=== PATIENT | female | born 1945 | race African-American/Black ===

== ENCOUNTER 2019-08-19 05:39 | Day surgery (SDC) | payer MEDICARE, MEDICAID ==
[2019-08-17 07:27] LABS: BASOPHILS % (AUTO) 2.2 % (0.0-2.0); EOSINOPHILS % (AUTO) 5.1 % (0.0-3.0); HEMATOCRIT 40.1 % (37.0-47.0); LYMPHOCYTES % (AUTO) 26.6 % (20.0-45.0); MEAN CORPUSCULAR VOLUME 86 FL (80-99); MONOCYTES % (AUTO) 9.8 % (1.0-10.0); NEUTROPHILS % (AUTO) 56.2 % (45.0-75.0); PLATELET COUNT 258 K/UL (150-450); RED BLOOD COUNT 4.67 M/UL (4.20-5.40); RED CELL DISTRIBUTION WIDTH 12.1 % (11.6-14.8); WHITE BLOOD COUNT 7.5 K/UL (4.8-10.8)
[2019-08-17 07:32] LABS: INR 0.9 (0.9-1.1)
[2019-08-17 07:47] LABS: ANION GAP 9 mmol/L (5-15); BLOOD UREA NITROGEN 13 mg/dL (7-18); CALCIUM 9.1 MG/DL (8.5-10.1); CARBON DIOXIDE 30 MMOL/L (21-32); CHLORIDE 104 MMOL/L (98-107); POTASSIUM 3.7 MMOL/L (3.5-5.1); SODIUM 143 MMOL/L (136-145)
--- NOTE | 2019-08-17 12:03 | Opthalmology H&P ---
Ophthalmology H&P H&P Chief Complaint: decreased vision in left eye HPI Vision Affects Ability to: read, manage personal affairs Past Ocular History: retinal problems - Hypertension Retinopathy OU HPI Narrative Blurry Vision Exam Visual Acuity: OD 20/125 OS 20/200 Tension: OD 12 OS 12 Eye Exam: normal OU: external exam, palpebral fissure-width, marginal reflex distance, levator function, corneas, anterior chambers; findings: lens - NS OU, fundus exam - HTN Retinopathy OU Assessment/Plan Treatment Plan: cataract extraction w/ lens implant - left eye Goals of Treatment: improvement of vision, enhance quality of life Attestation Attestation The risks and benefits of the surgery as well as alternative procedures were explained to the patient in detail. Umer Madrigal MD Aug 17, 2019 12:03
--- NOTE | 2019-08-17 12:04 | Pre-Procedure Note/Attestation ---
Pre-Procedure Note/Attestation Complete Prior to Procedure Planned Procedure: left Procedure Narrative: Cataract Extraction With Intraocular Lens Implant Left Eye Indications for Procedure Pre-Operative Diagnosis: Nuclear sclerotic cataract left eye Attestation I attest that I discussed the nature of the procedure; its benefits; risks and complications; and alternatives (and the risks and benefits of such alternatives ), prior to the procedure, with the patient (or the patient's legal customer service representative teacher). I attest that, if there was a reasonable possibility of needing a blood transfusion, the patient (or the patient's legal customer service representative teacher) was given the [facility] standardized written summary, pursuant to the Jose Graingers Blood Safety Act ([place] Health and Safety Code # 1645, as amended). I attest that I re-evaluated the patient just prior to the surgery and that there has been no change in the patient's H&P, except as documented below: Umer Madrigal MD Aug 17, 2019 12:04
--- NOTE | 2019-08-17 16:15 | Pre-op HX & Phy Repo 2 SIG ---
DATE OF ADMISSION: 08/19/2019 PRESURGICAL INTERNAL MEDICINE HISTORY AND PHYSICAL DATE OF EVALUATION: 08/17/2019. REASON FOR EVALUATION: I was asked by Dr. Umer Madrigal to see this 74-year-old female who is going for elective surgery on the left eye. The patient has a sclerotic nuclear cataract of left eye. Please see full History and Physical by Dr. Umer Madrigal. Surgery is scheduled for August 19, 2019 at the [facility]. The patient was seen in the presurgical department at [facility]. The patient is a 74-year-old female complaining of progressive vision loss due to cataract. PAST MEDICAL HISTORY AND REVIEW OF SYSTEMS: Remarkable for history of hypertension, degenerative joint disease of knee, and history of bronchial asthma. Denies history of stroke. No chest pain, palpitation, or heart attack. Denies history of bronchial asthma or COPD. No history of diabetes mellitus. No history of GI bleeding. No hepatitis. No history of renal failure. History of degenerative joint disease of knee. PAST SURGICAL HISTORY: Cholecystectomy. FAMILY HISTORY: Mother from heart attack. Father, unknown. ALLERGIES: Allergic to penicillin and codeine . MEDICATIONS: Present medications include simvastatin 20 mg, hydrochlorothiazide, 25 mg, Ventolin inhaler, amlodipine 10 mg, and Motrin as needed. HABITS: The patient smoked for about 20 years and stopped five years ago. Alcohol for 10 years, stopped [address]. PHYSICAL EXAMINATION: GENERAL: Alert, well-developed and well-nourished, overweight female in her 70s, in no acute distress. VITAL SIGNS: Blood pressure 150/83, temperature 97.6, pulse 74, and respirations 18. O2 saturation 97% on room air. SKIN: Clear, warm, dry. LYMPHATICS: Lymph nodes not enlarged. HEENT: Head is normocephalic and atraumatic. Ears, clear. No discharge. Eyes, full description per Dr. Umer Madrigal. Mouth, clear and moist. No teeth. No dentures. NECK: Supple. No jugular venous distention. Carotids artery +2. Trachea midline. CHEST: No deformity or asymmetry. LUNGS: Clear to auscultation and percussion. No rales or rhonchi. HEART: Sinus bradycardia 54 per minute. No murmur. No S3 or S4. ABDOMEN: Soft, obese. No rebound. Liver and spleen not enlarged. EXTREMITIES: Degenerative joint disease, knee, more on the right. No edema. No varicose vein. GENITOURINARY: Denies dysuria. No CVA tenderness. NEUROLOGIC: No tremor. No nystagmus. LABORATORY AND DIAGNOSTIC DATA: ECG - sinus bradycardia [address] abnormality suggestive of left ventricular hypertrophy. Laboratory work pending. IMPRESSION: 1. Nuclear sclerotic cataract, left eye. 2. Hypertension, controlled. 3. Bronchial asthma, controlled. 4. Obesity. 5. Degenerative joint disease, knee. PLAN: Cataract extraction of left eye with intraocular lens implant per Dr. Umer Madrigal. CONCLUSION: The patient is a 74-year-old female with multiple medical problems including hypertension, degenerative joint disease, and obesity. EKG, sinus bradycardia 55 and asymptomatic and evidence of left ventricular hypertrophy. The patient should be NPO after midnight , August 19, 2019. The patient's condition is optimized for surgery. Thank you very much, Dr. Madrigal, for privilege to participate in presurgical care of this interesting patient. Cara James M.D. DR: YELENA JOB#: [id number] CC:
[~2019-08-19] VITALS: Ht 179.1 cm; Wt 108.9 kg
[2019-08-19] VITALS (9 sets, daily range): BP systolic 123–153; BP diastolic 64–87
[~2019-08-19 05:39] MED LIST: AMLODIPINE BESY10 MG ORAL; HYDROCHLOROTHIA25 MG ORAL; VENTOLIN HFA18 GM INH
[2019-08-19] MEDS ORDERED: CHOLESTEROL MED PO (06:16)
[2019-08-19] MEDS: Tropicamide 1% Opth 15ml Soln LEFT EYE SCH ×3 (06:43→06:56)
[2019-08-19] MEDS: Phenylephrine 10% Opth Soln 5ml LEFT EYE SCH ×3 (06:43→06:56)
[2019-08-19] MEDS: Cyclopentolate 1% Opth Sol 2ml LEFT EYE SCH ×3 (06:43→06:56)
[2019-08-19] MEDS ORDERED: Proparacaine 0.5% Opth Soln 15ml LEFT EYE ONE (07:00)
[2019-08-19] MEDS ORDERED: Tetracaine 0.5% Opth 4ml Soln LEFT EYE ONE (07:00)
[2019-08-19] MEDS ORDERED: Akten 3.5% 1ml Btl LEFT EYE ONE (07:00)
[2019-08-19] MEDS ORDERED: fentaNYL 100 mcg/2 mL IV ONE (07:12)
[2019-08-19] MEDS ORDERED: Propofol 200mg/20ml IV ONE (07:13)
[2019-08-19] MEDS ORDERED: Povidone-Iodine 5% opth solution ONE (07:20)
[2019-08-19] MEDS ORDERED: BSS 500ml btl ONE (07:20)
[2019-08-19] MEDS ORDERED: BSS 15ml BTL ONE (07:20)
[2019-08-19] MEDS ORDERED: Sodium Hyaluronate 10 mg/ml 0.85ml ONE (07:20)
[2019-08-19] MEDS ORDERED: LR 1000ml 1,000 ML IVLG SCH (07:21)
[2019-08-19] MEDS ORDERED: acetaZOLAMIDE 500mg Inj ONE (07:21)
--- NOTE | 2019-08-19 07:21 | Anethesia Preoperative Eval ---
Anesthesia Pre-op PMH/ROS General Date of Evaluation: Aug 19, 2019 Time of Evaluation: 07:18 Anesthesiologist: Melonie ASA Score: ASA 3 Mallampati Score Class I : Soft palate, uvula, fauces, pillars visible Class II: Soft palate, uvula, fauces visible Class III: Soft palate, base of uvula visible Class IV: Only hard plate visible Mallampati Classification: Class III Surgeon: Kaitlin Diagnosis: L eye cataract Surgical Procedure: cataract extraction Anesthesia History: none Social History: smoking - h/o Family History: no anesthesia problems Allergies: Coded Allergies: CODEINE (Verified Allergy, Intermediate, hives, 08/19/19) PENICILLINS (Verified Allergy, Intermediate, HIVES, 08/19/19) Medications: see eMAR Patient NPO?: Yes Past Medical History Cardiovascular: Reports: HTN; Denies: CAD, IL, valve dz, arrhythmia, other Pulmonary: Reports: COPD; Denies: asthma, SHAUN, other Gastrointestinal/Genitourinary: Reports: GERD; Denies: CRI, ESRD, other Neurologic/Psychiatric: Denies: dementia, CVA, depression/anxiety, TIA, other Endocrine: Denies: DM, hypothyroidism, steroids, other HEENT: Reports: cataract (L), cataract (R); Denies: glaucoma, TIMBI-SHA SHOSHONE (L), TIMBI-SHA SHOSHONE (R), other Hematology/Immune: Denies: anemia, DVT, bleeding disorder, other Musculoskeletal/Integumentary: Reports: OA, DJD Other: obesity PMH Narrative: as above PSxH Narrative: cholecystectomy Anesthesia Pre-op Phys. Exam Physician Exam Last Vital Signs Date Time Temp Pulse Resp B/P (MAP) Pulse Ox O2 Delivery O2 Flow Rate FiO2 08/19/19 06:16 Room Air 08/19/19 06:10 98.3 76 18 143/86 100 Constitutional: NAD Neurologic: CN 2-12 intact Cardiovascular: RRR, no M/R/G Respiratory: other - some wheezing Gastrointestinal: other - obesity Airway Exam Mallampati Score: Class III MO: limited Neck: short ROM: limited Teeth: missing Dentures: no upper, no lower Anesthesia Pre-op A/P Labs see chart Studies Pre-op Studies: EKG - SB Risk Assessment & Plan Assessment: ASA 3 Plan: MAC Status Change Before Surgery: No Jose Luis Wilhelm MD Aug 19, 2019 07:21
[2019-08-19] MEDS ORDERED: fentaNYL 100 mcg/2 mL IV PRN (07:30)
[2019-08-19] MEDS ORDERED: Ciprofloxacin Opth Soln 2.5ml ONE (07:59)
[2019-08-19] MEDS ORDERED: Sterile Water Irrig 1000ml IRRIG ONE (08:00)
[2019-08-19] MEDS ORDERED: NS Irrig 1000ml ONE (08:00)
[2019-08-19] MEDS ORDERED: LR 1000ml ONE (08:00)
--- NOTE | 2019-08-19 08:56 | Immediate Post-Op Evaluation ---
Immediate Post-Op Evalulation Immediate Post-Op Evalulation Procedure: L eye cataract extractrion with IOL Date of Evaluation: Aug 19, 2019 Time of Evaluation: 08:55 IV Fluids: 400 Blood Products: none Estimated Blood Loss: none Urinary Output: none Blood Pressure Systolic: 142 Blood Pressure Diastolic: 76 Pulse Rate: 58 Respiratory Rate: 20 O2 Sat by Pulse Oximetry: 99 Temperature (Fahrenheit): 97.6 Pain Score (1-10): 1 Nausea: No Vomiting: No Complications none Patient Status: awake, patent, none Hydration Status: adequate Jose Luis Wilhelm MD Aug 19, 2019 08:56
--- NOTE | 2019-08-19 11:53 | 48 Hour Post Anesthesia Eval ---
Post Anesthesia Evaluation Procedure: L eye cataract extractrion with IOL Date of Evaluation: Aug 19, 2019 Time of Evaluation: 10:10 Blood Pressure Systolic: 124 0: 76 Pulse Rate: 68 Respiratory Rate: 18 Temperature (Fahrenheit): 97.6 O2 Sat by Pulse Oximetry: 98 Airway: patent Nausea: No Vomiting: No Pain Intensity: 1 Hydration Status: adequate Cardiopulmonary Status: stable Mental Status/LOC: patient returned to baseline Follow-up Care/Observations: n/a Post-Anesthesia Complications: none Follow-up care needed: ready to discharge Jose Luis Wilhelm MD Aug 19, 2019 11:53
--- NOTE | 2019-08-24 09:41 | Brief Operative Note ---
Immediate Post Operative Note Operative Note Chief Complaint: Blurry vision Pre-op Diagnosis: Nuclear sclerotic cataract left eye Procedure: Cataract extraction with intraocular lens implant left eye Post-op Diagnosis: Pseudophakia OS Findings: consistent w/pre-op dx studies Surgeon: Umer Madrigal MD Anesthesia: MAC Specimen: none Complications: none Condition: stable Fluids: LR Estimated Blood Loss: none Drains: none Implant(s) used?: Yes - IOL OS Umer Madrigal MD Aug 24, 2019 09:41
--- NOTE | 2019-08-24 09:45 | Operative Note - PDOC ---
Operative Note Operative Note Date of Operation/Procedure: Aug 19, 2019 Chief Complaint: Blurry vision Pre-op Diagnosis: Nuclear sclerotic cataract left eye Procedure: Cataract extraction with intraocular lens implant left eye Post-op Diagnosis: Pseudophakia OS Operative Findings: consistent w/pre-op dx studies Surgeon: Umer Madrigal MD Anesthesia: MAC Specimen: none Complications: none Condition: stable Fluids: LR Estimated Blood Loss: none Drains: none Implant(s) used?: Yes - IOL OS Indications for Procedure Nuclear sclerotic cataract left eye Description of Procedure This patient has been complaining visually significant cataract in the left eye with the best corrected visual acuity of 20/200 under moderate glare conditions worse. The patient complains of difficulties with glare in performing activities of daily living and wants to manage personal affairs with comfort and accuracy and see well enough to move with safety at home and outdoors. The risks, benefits and alternatives of the procedure were discussed with the patient in the office prior to scheduling surgery. All questions from the patient were answered after the surgical procedure was explained in detail. The risks of the procedure as explained to the patient include, but are not limited to, pain, infection, bleeding, loss of vision, retinal detachment, need for further surgery, loss of lens nucleus, double vision, etc. Alternative procedures were discussed which include, to do nothing or seek a second opinion. Informed consent for this procedure was obtained from the patient. The patient was referred to a primary care physician for a cardiopulmonary clearance prior to surgery, after proper evaluation was done patient was properly scheduled for outpatient surgery. The patient was brought to the operating room where the anesthesiologist established I.V. lines and cardiac monitoring leads. Mild intravenous sedation was administered. The patient was then prepared with a 5% solution of povidone -iodine to the conjunctival fornix and lashes, and a 5% solution of povidone- iodine to the lids and periorbital skin. The patient was then draped in the usual sterile fashion. A lid speculum was then placed in the operative eye. A keratome blade was then used to create a biplanar incision into the anterior chamber. Viscoelastics was then instilled into the anterior chamber. A 3-mm single pass clear corneal incision was made just anterior to the vascular arcade of the temporal limbus using a keratome. Anterior capsulorrhexis was created. The nucleus was hydrodissected and hydrodelineated, and was freely movable in the capsular bag. The nucleus was then phacoemulsified. Following the deep groove formation, the lens was split bimanually and epicortex removed under vacuum burst-mode phacoemulsification. Peripheral cortex was removed with the irrigation and aspiration handpiece. The capsular bag was expanded with viscoelastic. The intraocular lens was then inspected for right power and size and thought to be satisfactory. The implant was inspected under the microscope and found to be free of defects. The implant was inserted into the cartridge system under viscoelastic and placed in the capsular bag. The trailing haptic was positioned with the cartridge system. Viscoelastics was removed from the anterior chamber using the irrigation and aspiration unit. The corneal wound was then tested for leaks and none were found. The lid speculum were then removed. Sponge and needle counts were correct. An eye patch and shield were placed over the operative eye. The patient was taken to the recovery room in stable condition. There were no complications. The patient tolerated the procedure well. The patient was then transferred to the ambulatory surgery unit in stable and satisfactory condition , was given detailed written instructions and asked to follow up in the office the next day. Umer Madrigal MD Aug 24, 2019 09:45
== END 2019-08-19 10:30 | disposition home or self-care (01) ==
LOC: SUR 05:39
DX: H25.12 Age-related nuclear cataract, left eye (principal); I10 Essential (primary) hypertension; J44.9 Chronic obstructive pulmonary disease, unspecified; K21.9 Gastro-esophageal reflux disease without esophagitis; M19.90 Unspecified osteoarthritis, unspecified site; E66.9 Obesity, unspecified; Z90.49 Acquired absence of other specified parts of digestive tract; Z88.0 Allergy status to penicillin; Z88.6 Allergy status to analgesic agent
CPT/HCPCS: 36415; 66984; 80048; 85025; 85610; 85730; 93005; J2704; J3010; J3370; J7120; V2632; 94003; 94150